=== PATIENT | male | born 1960 | race Caucasian/White ===

== ENCOUNTER 2016-12-24 05:28 | Inpatient (IN) | payer BC ==
[2016-12-17 12:22] LABS: BASOPHILS 0.6 %; BASOPHILS ABSOLUTE 0.05 10/3/uL (0.0-0.16); EOSINOPHILS 3.3 %; EOSINOPHILS ABSOLUTE 0.26 10/3/uL (0.0-0.53); HEMATOCRIT 39.8 % (40.0-51.0); HEMOGLOBIN 13.2 g/dL (13.6-17.8); IMMATURE GRANULOCYTES 0.8 %; IMMATURE GRANULOCYTES ABSOLUTE 0.06 10/3/uL (0.0-0.11); LYMPHOCYTES 35.5 %; LYMPHOCYTES ABSOLUTE 2.79 10/3/uL (0.67-4.30); MEAN CORPUS HGB CONC 33.2 g/dL (32.0-36.0); MEAN CORPUSCULAR HEMOGLOB 28.9 pg (26.0-34.0); MEAN CORPUSCULAR VOLUME 87.1 fL (80-100); MEAN PLATELET VOLUME 9.8 fL (9.2-13.0); MONOCYTES 7.8 %; MONOCYTES ABSOLUTE 0.61 10/3/uL (0.21-1.20); PLATELET COUNT 171 10/3/uL (150-400); RBC DISTRIBUTION WIDTH 13.1 % (12.0-16.0); RED CELL COUNT 4.57 10/6/uL (4.7-6.1)
[2016-12-17 12:26] LABS: INTERNATIONAL NORMAL RATI 1.2 UNITS (-)
[2016-12-17 12:31] LABS: MANUAL DIFF NO %; WHITE BLOOD CELLS 7.9 10/3/uL (4.5-10.5)
[2016-12-17 12:39] LABS: PROTIME (NOT ORD) 15.1 SEC (12.0-14.5)
[2016-12-17 12:42] LABS: % IRON SAT 23 % (20-50); BUN (BLOOD UREA NITROGEN) 11 MG/DL (6-23); CALCIUM, SERUM 8.9 MG/DL (8.5-10.4); CHLORIDE, SERUM 100 MMOL/L (96-112); CO2 (CARBON DIOXIDE) 32 MMOL/L (24-34); CREATININE 0.68 MG/DL (0.70-1.30); GFR AFRICAN AMERICAN 124 ML/MIN (>=60); GFR NON AFRICAN AMERICAN 107 ML/MIN (>=60); IRON BINDING CAPACITY 302 MCG/DL (250-450); IRON, SERUM 70 MCG/DL (35-150); SODIUM, SERUM 141 MMOL/L (135-148)
[2016-12-17 12:45] LABS: GLUCOSE, SERUM 123 MG/DL (60-99)
[2016-12-17 13:03] LABS: ASCORBIC ACID (UR NOT ORDER) NEG (NEG); BILIRUBIN, URINE NEGATIVE (NEG); KETONE, URINE NEGATIVE (NEG); LEUKOCYTE ESTERASE(NOT OR NEG (NEG); WBC (NOT ORDERED) (RFLEX) < 1 (0-5)
[2016-12-18 12:02] LABS: A/G RATIO 1.6 (0.7-1.9); ALKALINE PHOSPHATASE 58 U/L (45-117); GLOBULIN 2.5 G/DL (2.5-4.1); SGOT(AST) 14 U/L (5-40); TOTAL BILIRUBIN 0.5 MG/DL (0-1.2); TOTAL PROTEIN 6.6 G/DL (6.0-8.5)
[2016-12-18 12:04] LABS: ALBUMIN 4.1 G/DL (3.5-5.0)
[2016-12-18 12:21] LABS: SGPT(ALT) 19 U/L (5-65)
--- NOTE | ~2016-12-24 | CN ---
Consultation Report [address] [place]. [address] NAME: DENNISE KILPATRICK : 60 STATUS : ADM IN PAT#: [id number] AGE: 56 ADM/REG DATE : 12/24/16 MR#: [id number] REPORT SERV DATE: 12/27/16 DICTATED BY: JENI TURPIN DATE: 12/27/16 REPORT STATUS : Draft TRANSCRIBED BY: MODL DATE: 12/27/16 PULMONARY CONSULTATION DATE OF CONSULTATION: 12/27/2016 REASON FOR CONSULTATION: COPD. HISTORY OF PRESENT ILLNESS: Mr. Kilpatrick is a 56-year-old white male smoker with known COPD- on Anoro as an outpatient, obstructive sleep apnea-on BiPAP as an outpatient, and nocturnal hypoxia-on supplemental oxygen overnight as an outpatient. He was admitted for a CABG. Pulmonary has been consulted for assistance with treatment of COPD. The patient was started on his home medication of Anoro today. Prior to starting on this medication, here as an inpatient, he has been on Proventil via nebulization as well as Proventil via metered dose inhaler only. He states that he is followed by a [place] coffee supervisor, Dr. Jacky Oconnell as an outpatient and has been followed by the physician for several years. He was diagnosed with obstructive sleep apnea in 1993 and has used BiPAP since then. With regard to his COPD, he states that he was diagnosed more than one year ago and advised that his COPD is "mild." He was initially placed on Spiriva only, but was recently started on Anoro as described above. He uses Proventil one to two times daily for rescue purposes. He states that at baseline as an outpatient, he has minimal shortness of breath and rare wheezing. PAST MEDICAL HISTORY: 1. COPD as described above. 2. Obstructive sleep apnea-on BiPAP as described above. 3. Nocturnal hypoxia, on supplemental oxygen with sleep. 4. Coronary artery disease - status post CABG. 5. Diabetes mellitus. 6. Hypertension. 7. Hyperlipidemia. 8. Prior cholecystectomy. 9. Tonsillectomy. 10.Appendectomy. 11.Right and left rotator cuff repair. 12.Left knee surgery. 13.Left elbow surgery. 14.Paroxysmal atrial fibrillation. FAMILY HISTORY: His smoker father had COPD and emphysema. SOCIAL HISTORY: Mr. Das smoked up to one and a half packs of cigarettes per day and Consultation Report [facility] [address] [place]. [address] NAME: DENNISE KILPATRICK : 60 STATUS : ADM IN PAT#: [id number] AGE: 56 ADM/REG DATE : 12/24/16 MR#: [id number] REPORT SERV DATE: 12/27/16 DICTATED BY: JENI TURPIN DATE: 12/27/16 REPORT STATUS : Draft TRANSCRIBED BY: MODL DATE: 12/27/16 recently decreased his smoking to half a pack of cigarettes per day. He has smoked for 41 years. He denies ethanol intake, past/present drug use, or chewing tobacco. 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 He is and has no biological children. MEDICATIONS: Outpatient and inpatient medications were reviewed and are as documented in the record. As noted above, he was on Anoro once daily and rescue albuterol outpatient. ALLERGIES: HE DENIES MEDICATION ALLERGIES. REVIEW OF SYSTEMS: A 12-point system review was conducted and is remarkable for the symptoms as described in the history of present illness. It is notable that he feels his obstructive sleep apnea is well controlled with his current BiPAP settings. PHYSICAL EXAMINATION: VITAL SIGNS: Temperature 98.4 degrees, heart rate 96, blood pressure 141/82, respiratory rate 18, and oxygen saturation 97% on supplemental oxygen at a flow rate of 2 L/minute. GENERAL: Pleasant white male. Alert, oriented, no apparent distress. HEENT: Normocephalic. Atraumatic. There is no scleral icterus. The conjunctivae are clear. The oropharynx is clear. NECK: Supple. No lymphadenopathy was appreciated. LUNGS: Good effort. There are diminished breath sounds at both bases. There are a few faint expiratory wheezes in the lower lung gagnon. There are no crackles or rhonchi. HEART: Regular rate and rhythm. No ectopy was noted. ABDOMEN: Soft. Nontender. Nondistended. There are normal bowel sounds in all four quadrants. BILATERAL EXTREMITIES: There is minimal pedal edema. There is no cyanosis or clubbing. NEUROLOGICAL: A limited exam was conducted. It was found to be nonfocal. SKIN: No lesions or rashes were noted. LABORATORY RESULTS: Labs were reviewed and are as documented in the record. Notable labs include a white blood cell count of 14.6. IMAGING: Chest x-ray done 12/26/2016 was reviewed and did not reveal any infiltrates, atelectasis, or pleural effusions. ASSESSMENT AND PLAN: Mr. Kilpatrick is a 56-year-old white male smoker with known chronic obstructive pulmonary disease, obstructive sleep apnea, nocturnal hypoxia, who was admitted for coronary artery bypass graft. He currently has a few faint wheezes post CABG. As noted above, he has been restarted on his home medication Anoro. Consultation Report [place] [id number] [facility] [place]. [address] NAME: DENNISE KILPATRICK : 60 STATUS : ADM IN PAT#: [id number] AGE: 56 ADM/REG DATE : 12/24/16 MR#: [id number] REPORT SERV DATE: 12/27/16 DICTATED BY: JENI TURPIN DATE: 12/27/16 REPORT STATUS : Draft TRANSCRIBED BY: MAYCO DATE: 12/27/16 Recommend continuing Proventil for rescue purposes. Continue Anoro. The patient is wheezing as noted above, would add a nebulized steroid. Budesonide 0.5 mg twice daily via nebulization will be added to his regimen. Continue pulmonary toilet. Continue home BiPAP with supplemental oxygen here as an inpatient and as an outpatient after discharge. Wean daytime supplemental oxygen. As noted above, the patient is an active smoker. He was counseled for more than five minutes regarding the importance of smoking cessation and possible adverse affects of continued tobacco use. He is unsure if he has had a lung cancer screening and CT scan of the chest. He should have this as he does have a long history of smoking as documented. This can be done by his outpatient coffee supervisor. He should be discharged with his usual home COPD medications of Anoro and Proventil. He does have these medications as well as active prescriptions. Follow up with his usual outpatient coffee supervisor, Dr. Jacky Oconnell in [place] has been requested. Thank you very much for this consultation. Please call again if additional assistance is needed. JAZLYN/MAYCO Jeni Turpin M.D. / [id number] CC: Pancho Carrion SUSAN
--- NOTE | ~2016-12-24 | OP ---
Record Of Operation [facility] [address] [place]. [address] NAME: DENNISE KILPATRICK : 60 STATUS : ADM IN PAT#: [id number] AGE: 56 ADM/REG DATE : 12/24/16 MR#: [id number] REPORT SERV DATE: 12/27/16 DICTATED BY: FLASH ROSALES DATE: 12/25/16 REPORT STATUS : Draft TRANSCRIBED BY: MODL DATE: 12/25/16 DATE OF PROCEDURE: 12/24/2016 PREOPERATIVE DIAGNOSES: 1. Coronary artery disease with left main coronary stenosis. 2. Paroxysmal atrial fibrillation. 3. Chronic systolic congestive heart failure (ejection fraction 40%). 4. Chronic obstructive pulmonary disease. 5. Type 2 bqc-mmwieqa-junymwlzc diabetes mellitus. 6. Hypertension. 7. Hyperlipidemia. 8. Tobacco abuse. POSTOPERATIVE DIAGNOSES: 1. Coronary artery disease with left main coronary stenosis. 2. Paroxysmal atrial fibrillation. 3. Chronic systolic congestive heart failure (ejection fraction 40%). 4. Chronic obstructive pulmonary disease. 5. Type 2 qaw-fqqrriw-crdjezclx diabetes mellitus. 6. Hypertension. 7. Hyperlipidemia. 8. Tobacco abuse. PROCEDURES PERFORMED: 1. Coronary artery bypass grafting x4; left internal mammary artery placed to left anterior descending, reverse saphenous vein graft placed to the ramus intermedius, reverse saphenous vein graft placed to the first obtuse marginal, and reverse saphenous vein graft placed to the posterior descending artery. 2. Carr-Maze 4 procedure on cardiopulmonary bypass using radiofrequency ablation and cryoablation. 3. Endoscopic vein harvest of saphenous vein from the right leg. 4. Transesophageal echocardiography. CARE MANAGEMENT SPECIALIST: Nathaniel Duarte and Marlena Gillis. ANESTHESIA: General with Dr. Magallanes. ELEMENTARY SCHOOL BAND DIRECTOR: Hernan Shrestha M.D. PRIMARY CARE PHYSICIAN: Kathe He. INDICATIONS: This is a 56-year-old gentleman, who is an obese diabetic male with a long history of smoking, who has a history of coronary artery disease with previous stenting of the LAD. He was seen in [place], [place], in October because of acute onset shortness of breath and atrial fibrillation. He ruled out for myocardial infarction at that time and was referred for cardiac catheterization. This was performed and demonstrated significant Record Of Operation [facility] [address] [place]. [address] NAME: DENNISE KILPATRICK : 60 STATUS : ADM IN PAT#: [id number] AGE: 56 ADM/REG DATE : 12/24/16 MR#: [id number] REPORT SERV DATE: 12/27/16 DICTATED BY: FLASH ROSALES DATE: 12/25/16 REPORT STATUS : Draft TRANSCRIBED BY: MODMaru DATE: 12/25/16 left main coronary artery stenosis along with a significant posterior descending artery blockage. He had previously placed stent in the LAD which was patent. His ejection fraction was preserved at 60%. There was no significant mitral valve insufficiency seen on cardiac catheterization. We were asked to see the patient for possible coronary artery bypass grafting and consideration for Maze procedure secondary to paroxysmal atrial fibrillation documented at [facility] in [place]. He has a long history of COPD and obstructive sleep apnea and uses a CPAP device at night. Unfortunately, he continues to smoke about a half pack of cigarettes per day. He is an insulin-dependent diabetic male. His ejection fraction is 40% to 45% on cardiac catheterization. Echocardiogram showed depressed left ventricular function on 10/27/2016 and an EF of less than 40%. A stress test on 11/11/2016 demonstrated an EF of 42%. We saw the patient in our office and discussed possible coronary bypass grafting and possible Maze procedure. Preoperative STS predicted mortality of less than 1% and morbidity-mortality of less than 8% what we have shared with the family. After a lengthy discussion of the operation, its indications, and risks, they wished to proceed. FINDINGS AT OPERATION: 1. Cross-clamp time of 85 minutes. Total pump time of 134 minutes. 2. The LAD was a 1.75 mm, mildly diseased vessel. A 2.5 mm CLAY was anastomosed to it with good runoff. 3. The ramus intermedius was 2 mm and moderately diseased. A 4 mm RSVG was anastomosed to it with good runoff. 4. The first obtuse marginal was 2 mm and mildly diseased. A 4 mm RSVG was anastomosed to it with good runoff. 5. The posterior descending artery was 1.5 mm and mildly diseased. A 4 mm RSVG was anastomosed to it with good runoff. 6. The vein quality was okay. The vein had several areas that were dilated and with valves. We tried to exclude these as much as possible. All grafts did have good Doppler signal at the end of the case. 7. A Carr-Maze IV procedure was performed using AtriCure radiofrequency ablation and cryoablation probes. Full lesion set can be seen on the lesion set checklist in the operative section. Standard Carr-Maze IV lesion set was performed. 8. We did perform entry and exit block confirmation. 9. We did ligate and amputate the left atrial appendage. 10.ESDRAS demonstrated improved ventricular function after bypass with an EF that was estimated between 40% to 50%. Inferior wall hypocontractility was still notable. There was no significant valvular pathology and no left atrial appendage clot was seen on echo. 11.There were extensive emphysematous changes in both lungs that were seen directly during the procedure. PATHOLOGIC SPECIMENS: Include left atrial appendage. DESCRIPTION OF PROCEDURE: The patient was brought to the operating suite where general anesthesia was induced. The airway was secured with an endotracheal tube. Lines were secured by Anesthesia. A Sevilla catheter was placed. The patient's chest, abdomen, groin, and legs were prepped with Hibiclens and ChloraPrep and draped with Ioban sterile sheets. Record Of Operation [facility] [address] [facility] [place]. [address] NAME: DENNISE KILPATRICK : 60 STATUS : ADM IN PAT#: [id number] AGE: 56 ADM/REG DATE : 12/24/16 MR#: [id number] REPORT SERV DATE: 12/27/16 DICTATED BY: FLASH ROSALES DATE: 12/25/16 REPORT STATUS : Draft TRANSCRIBED BY: MODL DATE: 12/25/16 ESDRAS probe was placed by Anesthesia and examination carried out by Dr. Lipscomb in my attendance. No left atrial clot was seen. The saphenous vein was harvested from the right leg using endoscopic technique. Briefly, the vein was cut directly down upon through a 2 cm incision placed in the medial aspect of the left knee. Then, using VasoView trocars, the vessel was dissected from the surrounding subcutaneous tissue and fat. The side branches were identified, ligated, and divided with cautery. Once adequate length of vein had been dissected, a counterincision was made up in the groin and in the lower leg. The vein was ligated, divided, and brought through the knee incision. The vein quality was good. The leg was made hemostatic and closed in layers with absorbable suture and skin closed with subcuticular fashion. Next, a midline sternal incision was made, and the sternum was opened with a saw. The left hemithorax was elevated, and the endothoracic fascia was incised. Side branches of the REBECCA were clipped and divided. Once the REBECCA was completely dissected, the patient was anticoagulated with heparin and chest tube placed in the left pleural cavity. Extensive emphysematous changes in the upper lobes of both lungs were noted. The REBECCA was clipped and divided distally. There was good flow through the REBECCA, and its pedicle was infiltrated with papaverine. Next, the Richard retractor was placed in the pericardium over the innominate vein. The diaphragm was T'd and tacked to the side of the chest wall. Cannulation pursestring sutures were placed and cannulation was carried out in the ascending aorta first. Then, Maze procedure was begun. The right atrial appendage lesion was performed and dual- stage venous cannula was placed. When all was in readiness, the patient was placed on cardiopulmonary bypass. We continued with the right-sided lesion set for the Maze procedure performing all lesions in a Carr-Maze IV. Cryoablation was performed for the tricuspid annular lesion, and a coronary sinus lesion was performed using the cryoablation probe. Eventually, a retrograde cardioplegia cannula was placed in the coronary sinus. We continued with the Maze procedure on the left side. We first marked out the distal bypass targets as described in the findings. Then, circumferential dissection around the confluence of pulmonary veins was carried out. Entry and later exit block testing of the pulmonary veins was performed as seen in the Carr Maze IV lesion set checklist. Next, pulmonary vein isolation was performed along with a lesion at the base left atrial appendage and a connecting lesion between the left PVI and the base of the left atrial appendage. Then, the aorta was cross-clamped. Initial dose of cold blood cardioplegia solution was given in a combination of antegrade and retrograde fashion, then a retrograde manner following proximal anastomoses. Following the first dose of cardioplegia, we continued with the Maze procedure on the left side. A small left atriotomy was made, and superior and inferior dome lesions were performed. Final lesion going down to the mitral annulus in the region of P2 and P3 were performed using a combination of RFA and the cryoablation probe. The left atrium was then closed in a two-layer fashion with running pledgeted suture of 4-0 Prolene. The heart was then retracted towards the surgeon. The left atrial appendage was grasped. The left atrial appendage was ligated and amputated at its base using Record Of Operation [facility] [address] [place]. [address] NAME: DENNISE KILPATRICK : 60 STATUS : ADM IN PAT#: [id number] AGE: 56 ADM/REG DATE : 12/24/16 MR#: [id number] REPORT SERV DATE: 12/27/16 DICTATED BY: FLASH ROSALES DATE: 12/25/16 REPORT STATUS : Draft TRANSCRIBED BY: MODL DATE: 12/25/16 thoracoscopic stapler and a 60 mm purple staple load. Heart support was then placed. We then turned our attention towards the bypass graft. The heart was positioned for the PDA graft. Arteriotomy was made. The vein graft was trimmed and anastomosed to it with 7-0 Prolene. The vein graft was measured to the ascending aorta where it was divided and anastomosed to a 4.5 mm punch aortotomy with 6-0 Prolene. Another dose of cardioplegia was given, and we had positioned the heart for the first obtuse marginal graft. Another arteriotomy was made. The vein graft was trimmed and anastomosed to it with 7-0 Prolene. This vein graft was measured back to the left side of the ascending aorta where it was divided. We then positioned the heart for the ramus intermedius graft. Arteriotomy was made, and the vein graft was trimmed and anastomosed to it with 7-0 Prolene. This vein graft was then measured back to the left side of the ascending aorta where it was divided. Next, the proximal ends of these two vein grafts were anastomosed to 5 mm punch aortotomies with 6-0 Prolene. Another dose of cardioplegia was given, and the heart was positioned for the LAD graft. Arteriotomy was made in the mid to distal LAD where the vessel became epicardial. The REBECCA was brought out of the left chest through a notch in the pericardium over the pulmonary artery. The REBECCA was opened and anastomosed to the LAD with a running suture of 8-0 Prolene. The endothoracic fascia was tacked to the epicardium. The patient was placed in Trendelenburg, and final dose of warm blood cardioplegia was given in a retrograde fashion. Ventricular and atrial pacing wires were placed. Following the last dose of cardioplegia and deairing of the aorta, the aortic cross-clamp was removed. The distal and proximal anastomoses and suture lines were all inspected and made hemostatic. Doppler demonstrated good flow through the grafts. The heart was a little sluggish and was rest on the cardiopulmonary bypass pump. Low-dose inotropic agents were started. Ventilation was begun. Heart was paced in AV sequential fashion and this was later switched to atrial pacing only. When the heart demonstrated good contractility, it was allowed to fill and eject. There was a mild amount of air in the LV apex, and this was aspirated at the apex using needle and syringe. When air was greatly diminished, the heart was allowed to fill and eject. When de-airing was completed, the ascending aortic vent was removed, and these pursestring sutures tied and reinforced. The patient was weaned from cardiopulmonary bypass with inotropic support. The venous cannula was removed and these pursestring sutures tied. ESDRAS examination demonstrated good ventricular function with no significant valvular pathology. Protamine was administered by Anesthesia following a period of hemodynamic stability. The aortic cannula was removed, and these pursestring sutures were tied and reinforced. The patient continued to do well and chest irrigated copiously with saline. Meticulous hemostasis was obtained. Hemasorb was placed along the cut edge of the sternum. Once hemostasis was assured, the pericardium was draped over the anterior surface of the heart and tacked into position. Doppler demonstrated good flow through the grafts following protamine administration. Then, chest tubes were placed and the sternum reapproximated with eight sternal wires. The clavipectoral fascia and linea alba closed with 0 PDS. Subcutaneous tissue was closed and skin closed in a subcuticular fashion. Record Of Operation [facility] [address] [facility] [place]. [address] NAME: DENNISE KILPATRICK : 60 STATUS : ADM IN [facility]#: [id number] AGE: 56 ADM/REG DATE : 12/24/16 MR#: [id number] REPORT SERV DATE: 12/27/16 DICTATED BY: FLASH ROSALES DATE: 12/25/16 REPORT STATUS : Draft TRANSCRIBED BY: MODL DATE: 12/25/16 The patient tolerated the procedure well. There were no complications. Sponge and needle counts were correct. DISPOSITION: The patient was left intubated, sedated, and transported to the intensive care unit in a stable condition. JESUS/MAYCO Flash Rosales M.D. / [id number] CC: Pancho Carrion MD
--- NOTE | ~2016-12-24 | DS ---
Discharge Summary [facility] [address] [place]. [address] NAME: DENNISE KILPATRICK : 60 STATUS : DIS IN PAT#: [id number] AGE: 57 ADM/REG DATE : 12/24/16 MR#: [id number] REPORT SERV DATE: 02/25/17 DICTATED BY: FLASH ROSALES DATE: 02/24/17 REPORT STATUS : Draft TRANSCRIBED BY: MODMaru DATE: 02/24/17 Data Collection from hospitalization DISCHARGE DIAGNOSES: 1. Coronary artery disease. 2. Paroxysmal atrial fibrillation. 3. Oral anticoagulation. 4. Diabetes mellitus. 5. Hypertension. 6. Chronic obstructive pulmonary disease. 7. Obstructive sleep apnea. 8. Tobacco use. 9. Asthma. CONSULTATIONS: 1. Mag Martinez M.D. 2. Jeni Cormier M.D. 3. Sharan Nagy MD. PROCEDURES PERFORMED: Coronary artery bypass grafting x4 with left internal mammary artery to the left anterior descending artery, reverse saphenous vein graft placed to the ramus intermedius, reverse saphenous vein graft placed to the first obtuse marginal, and reverse saphenous vein graft placed to the posterior descending artery; Carr-Maze 4 procedure on cardiopulmonary bypass using radiofrequency ablation and cryoablation; endoscopic vein harvest of the saphenous vein from the right leg; and transesophageal echocardiography on 12/24/2016. PATHOLOGY: Left atrial appendage excision - cardiac tissue without histopathologic abnormality. MEDICATIONS: Aspirin 81 mg at bedtime, Lipitor 10 mg at bedtime, Lasix daily as instructed, Prinivil 5 mg daily, Fortamet 1000 mg twice a day, Lopressor 25 mg twice a day, multivitamins as instructed, amiodarone 200 mg twice a day, fish oil 500 mg daily, Percocet 5/325 one to two tablets every six hours as needed, Protonix 40 mg at bedtime, K-Dur 20 mEq daily, Januvia 100 mg at bedtime, Ultram 100 mg daily, and Coumadin 5 mg at bedtime. He was instructed not to continue Aleve, Coreg, Eliquis, diltiazem, or losartan. CONDITION AT DISCHARGE: Stable. DISPOSITION: The patient was discharged home on an 1800-calorie cardiac/diabetic diet with activities as instructed. He would follow up with Dr. Jacky Oconnell two to three weeks following discharge and with Dr. Hernan Shrestha on 01/19/2017. He would follow up with Abel Mahan on 01/27/2017 and at the [facility] on 12/30/2016. HOSPITAL COURSE: This is a 56-year-old man who is an obese, diabetic male with a long history of smoking, who has a history of coronary artery disease with previous stenting of the LAD. He had been seen in [place] in October because of the acute onset of shortness of breath and atrial fibrillation. He ruled out for myocardial infarction at that time and Discharge Summary [address] [address] NAME: DENNISE KILPATRICK : 60 STATUS : DIS IN PAT#: [id number] AGE: 57 ADM/REG DATE : 12/24/16 MR#: [id number] REPORT SERV DATE: 02/25/17 DICTATED BY: FLASH ROSALES DATE: 02/24/17 REPORT STATUS : Draft TRANSCRIBED BY: MAYCO DATE: 02/24/17 was referred for a cardiac catheterization. This was performed and demonstrated significant left main coronary artery stenosis along with significant posterior descending artery blockage. He had a previously placed stent in the LAD, which was patent. His ejection fraction was preserved at 60%. There was no significant mitral valve insufficiency seen on cardiac catheterization. It was felt that the patient would need to undergo coronary artery bypass grafting. Unfortunately, he continues to smoke about a half pack of cigarettes per day. He is an insulin-dependent diabetic male. He was admitted to the hospital at this time for further evaluation and treatment. Upon admission, he was taken to the operating room where he underwent the above-mentioned procedure. He tolerated this well, and there were no complications. Postoperatively, he was seen by Dr. Sharan Nagy. He was seen in the Cardiovascular ICU. Chest x-ray revealed mild bibasilar atelectasis, left greater than right. Routine postop care was provided. Low dose RANDY inhibitor was going to be added within the next one to two days. Eliquis would be resumed once this was okay with Surgery. Insulin drip continued. Blood pressure was stable. The following day, he was up sitting in a chair. Insulin drip continued. He had decreased breath sounds in the bases. His sternum was clean, dry, and intact. Eliquis was on hold for now. He was seen by Dr. Mga Martinez regarding diabetes management. He was diagnosed with diabetes approximately six years ago. He was currently on an insulin drip. He states that his hemoglobin A1c usually ranges in the low 7. He says that he is not on any special diet at home and eats and drinks sugary foods. The patient was informed as well as his family that he would be on a diabetic diet and avoid sugars and decrease carb. The patient said he understood this. The patient takes Januvia and metformin for diabetes, which was currently on hold. Current hemoglobin A1c was 7.2. He was to remain on a diabetic diet and would undergo diabetes education. He was to continue on his home BiPAP for obstructive sleep apnea. Bronchodilators were continued. Amiodarone was decreased. IV Pepcid was stopped. On 12/26/2016, his lungs were clear. His abdomen was soft and nontender. Warfarin was started. On 12/27/2016, he was seen by Dr. Jeni Cormier regarding COPD. The patient had been started on his home medication of Anoro. Prior to starting on this medication here as an inpatient, he had been on Proventil via nebulization as well as Proventil via metered-dose inhaler only. He is followed by a [place] home economist, Dr. Jacky Oconnell, as an outpatient and had been followed by him for several years. He was diagnosed with obstructive sleep apnea in 1993 and has used the BiPAP since then. He said he was diagnosed with COPD more than a year ago and was advised that his COPD was mild. He was initially placed on Spiriva only, but was recently started on Anoro. He uses Proventil one to two times daily for rescue purposes. At his baseline, he says he has minimal shortness of breath and rare wheezing. Blood cell count was 14.6. Chest x-ray did not reveal any infiltrates, atelectasis, or pleural effusions. He had a few faint wheezes. Proventil was going to be continued for rescue purposes. He was restarted on Anoro. Nebulized steroid was going to be added with budesonide. He was encouraged to continue pulmonary toilet. Discharge planning was performed. He was not eating very well. He had no chest pain or shortness of breath. He still had some increased chest tube drainage. On 12/28/2016, he had no new complaints. He was able to ambulate without difficulty. He was alert and cooperative. Beta-arley was increased. Discharge instructions were given. Due to his improved and stable condition, he was discharged home with the above-stated instructions. Discharge Summary [facility] [address] [place]. [address] NAME: DENNISE KILPATRICK : 60 STATUS : DIS IN PAT#: [id number] AGE: 57 ADM/REG DATE : 12/24/16 MR#: [id number] REPORT SERV DATE: 02/25/17 DICTATED BY: FLASH ROSALES DATE: 02/24/17 REPORT STATUS : Draft TRANSCRIBED BY: MAYOC DATE: 02/24/17 Information collected by: Juju Cardoso I submit the above information as my discharge summary. TG/MAYCO Flash Rosales M.D. / [id number] CC: Pancho Carrion SUSAN Vimal Ramjee, MD
--- NOTE | ~2016-12-24 | CN ---
Consultation Report [facility] [address] [place]. [address] NAME: DENNISE KILPATRICK : 60 STATUS : ADM IN PAT#: [id number] AGE: 56 ADM/REG DATE : 12/24/16 MR#: [id number] REPORT SERV DATE: 12/25/16 DICTATED BY: HOLLY CANADA DATE: 12/25/16 REPORT STATUS : Draft TRANSCRIBED BY: MAYCO DATE: 12/25/16 CONSULTATION DATE OF CONSULTATION: REASON FOR CONSULTATION: Diabetes management. HISTORY OF PRESENT ILLNESS: This is a 56-year-old male, with a past medical history of type 2 diabetes, diagnosed approximately six years ago, and history of hypertension. Postop day #1 for a quadruple CABG, and currently on Dr. Rosales's service with Cardiothoracic Surgery. The patient is currently on and a postop the insulin drip. The patient states that his hemoglobin A1c usually ranges in the low 7s, and states that he is not on any special diet at home, therefore, he is eating and drinking sugary foods. The patient was informed as well family that the patient is to be on a diabetic diet and to avoid sugars in decrease carbs. The patient states that he understands. He is currently sitting up in a chair with a family member at bedside. The patient takes metformin and Januvia for diabetes management at home which is currently on hold. PAST MEDICAL HISTORY: Type 2 diabetes, hypertension, hyperlipidemia, paroxysmal atrial fibrillation, coronary artery disease, COPD, and obstructive sleep apnea with home BiPAP. PAST SURGICAL HISTORY: Right rotator cuff and left rotator cuff repair, left knee and left elbow repair, cholecystectomy, tonsillectomy, appendectomy, and multiple caths. FAMILY HISTORY: Type 2 diabetes. SOCIAL HISTORY: Positive tobacco abuse. No alcohol or illicit drugs. ALLERGIES: NO KNOWN ALLERGIES. HOME MEDICATIONS: Reviewed. PHYSICAL EXAMINATION: VITAL SIGNS: Temperature of 98.6, blood pressure 120/70, with a pulse of 87, respiration of 18, and saturating 98% on 2 L. GENERAL: The patient is alert and oriented x3, currently in no distress. HEENT: Pupils are equal, round, and reactive to light. Extraocular muscles are intact. Moist mucous membranes. Anicteric sclera. CARDIOVASCULAR: S1 and S2. No appreciated rubs or gallops. RESPIRATORY: With a positive mild bibasilar rales. No wheezing. No signs of tachypnea. ABDOMEN: Positive bowel sounds. Soft and nontender. No rebound. No fluid wave. EXTREMITIES: Warm. Suspect trace of edema. NEURO: Cranial nerves II through XII grossly intact. Moves all four extremities. No neuro focal deficits. Consultation Report [facility] [id number] [place]. [address] NAME: DENNISE KILPATRICK : 60 STATUS : ADM IN [facility]#: [id number] AGE: 56 ADM/REG DATE : 12/24/16 MR#: [id number] REPORT SERV DATE: 12/25/16 DICTATED BY: HOLLY CANADA DATE: 12/25/16 REPORT STATUS : Draft TRANSCRIBED BY: MAYCO DATE: 12/25/16 LABORATORY DATA: Hemoglobin of 10.7, hematocrit of 32.5. Sodium 143, potassium 4.6, chloride 108, bicarb of 25, BUN of 21, creatinine is 0.57, with a glucose of 99. ASSESSMENT AND PLAN: 1. Consultation regarding type 2 diabetes management. Current hemoglobin A1c of 7.2. The patient should remain on ADA diet, with diabetic education. He has required approximately 100 units of insulin the past 24 hours. We will transition off insulin drip. Start Levemir and sliding scale insulin and closely monitor. 2. Coronary artery disease/CABG, management deferred to primary team. 3. History of obstructive sleep apnea. The patient to continue with home BiPAP. 4. History of chronic obstructive pulmonary disease, continue with bronchodilators. [facility] Holly Canada M.D. / [id number] CC: Walter Rosales M.D.
[~2016-12-24 05:28] MED LIST: ALEVE220 MG PO; ASAB PO; CARDCD120 PO; COREG25 PO; COREG3 PO; COZAAR100 MG PO; ELIQUIS 5 MG TAB5 MG PO; FISH-EPA1000 MG PO; FORTAMET1000 MG PO; IVVIBRA; JANUVIA100 MG PO; L20 PO; L40 PO; LIPITOR10 PO; MULTIPLE VIT; MULTIPLE VIT PO; NORV5 PO; PCET PO; PROTONIX PO; SINGULAIR1 PO; SPIRIVA INH; ULTRAM50 PO; VITAMIN B-122500 MCG PO; VITAMIN B-122500 MCG SL; VITC500 PO
[2016-12-24 13:34] LABS: BE (BASE EXCESS) 0.1 MEQ/L (0 +/- 2.5); CARBOXYHEMOGLOBIN 0.3 % (0-3); HCO3 (ACTUAL BICARBONATE) 26.2 MEQ/L (23-27); HEMOBLOGIN CONTENT 12.5 G/DL (14-18); INSTRUMENT SERIAL # 11843; METHEMOGLOBIN 0.6 % (0-3); MODE SIMV; O2 CONTENT 17.7 VOL% (18-24); OPERATOR ID 13715; PCO2 (CO2 TENSION) 49 MMHG (35-45); PO2 (O2 TENSION) 219 MMHG (79-93); SAMPLE Arterial; TIDAL VOLUME 800 ML; pH 7.35 (7.37-7.43)
[2016-12-24 14:48] LABS: BASOPHILS 0.1 %; BASOPHILS ABSOLUTE 0.02 10/3/uL (0.0-0.16); EOSINOPHILS 0.5 %; EOSINOPHILS ABSOLUTE 0.09 10/3/uL (0.0-0.53); HEMOGLOBIN 11.9 g/dL (13.6-17.8); IMMATURE GRANULOCYTES 0.8 %; IMMATURE GRANULOCYTES ABSOLUTE 0.15 10/3/uL (0.0-0.11); LYMPHOCYTES 9.3 %; LYMPHOCYTES ABSOLUTE 1.67 10/3/uL (0.67-4.30); MEAN CORPUS HGB CONC 33.2 g/dL (32.0-36.0); MEAN CORPUSCULAR VOLUME 87.1 fL (80-100); MEAN PLATELET VOLUME 10.3 fL (9.2-13.0); MONOCYTES 0.9 %; MONOCYTES ABSOLUTE 0.17 10/3/uL (0.21-1.20); NEUTROPHILS 88.4 %; NEUTROPHILS ABSOLUTE 15.85 10/3/uL (2.02-8.40); PLATELET COUNT 137 10/3/uL (150-400); RBC DISTRIBUTION WIDTH 13.2 % (12.0-16.0); RED CELL COUNT 4.11 10/6/uL (4.7-6.1)
[2016-12-24 14:51] LABS: HEMATOCRIT 35.8 % (40.0-51.0); MANUAL DIFF NO %
[2016-12-24 14:59] LABS: BUN (BLOOD UREA NITROGEN) 14 MG/DL (6-23); CALCIUM, SERUM 9.4 MG/DL (8.5-10.4); CHLORIDE, SERUM 109 MMOL/L (96-112); CO2 (CARBON DIOXIDE) 29 MMOL/L (24-34); CREATININE 0.85 MG/DL (0.70-1.30); GFR AFRICAN AMERICAN 113 ML/MIN (>=60); GFR NON AFRICAN AMERICAN 97 ML/MIN (>=60); GLUCOSE, SERUM 119 MG/DL (60-99); INTERNATIONAL NORMAL RATI 1.3 UNITS (-); PARTIAL THROMBO TIME 31.1 SEC (22.5-37.2); PROTIME (NOT ORD) 16.2 SEC (12.0-14.5); SODIUM, SERUM 146 MMOL/L (135-148)
[2016-12-24 15:08] LABS: POTASSIUM, SERUM 3.8 MMOL/L (3.5-5.3)
[2016-12-24 17:52] LABS: BE (BASE EXCESS) 0.2 MEQ/L (0 +/- 2.5); DEVICE NC; HCO3 (ACTUAL BICARBONATE) 25.7 MEQ/L (23-27); HEMOBLOGIN CONTENT 12.2 G/DL (14-18); INSTRUMENT SERIAL # 11843; METHEMOGLOBIN 0.6 % (0-3); O2 CONTENT 15.9 VOL% (18-24); OPERATOR ID 13715; PCO2 (CO2 TENSION) 45 MMHG (35-45); PO2 (O2 TENSION) 73 MMHG (79-93); SAMPLE Arterial; pH 7.38 (7.37-7.43)
[2016-12-24 20:28] LABS: HEMATOCRIT 33.6 % (40.0-51.0); HEMOGLOBIN 11.2 g/dL (13.6-17.8)
[2016-12-24 20:39] LABS: GLUCOSE, SERUM 168 MG/DL (60-99)
[2016-12-24 21:59] LABS: CALCIUM, SERUM 9.3 MG/DL (8.5-10.4); CHLORIDE, SERUM 111 MMOL/L (96-112); CREATININE 0.68 MG/DL (0.70-1.30); GFR AFRICAN AMERICAN 124 ML/MIN (>=60); GFR NON AFRICAN AMERICAN 107 ML/MIN (>=60); SODIUM, SERUM 145 MMOL/L (135-148)
[2016-12-24 22:00] LABS: BUN (BLOOD UREA NITROGEN) 20 MG/DL (6-23); CO2 (CARBON DIOXIDE) 23 MMOL/L (24-34)
[2016-12-25 00:57] LABS: POTASSIUM, SERUM 4.3 MMOL/L (3.5-5.3)
[2016-12-25 04:47] LABS: BASOPHILS 0.1 %; BASOPHILS ABSOLUTE 0.01 10/3/uL (0.0-0.16); EOSINOPHILS 0 %; HEMATOCRIT 31.9 % (40.0-51.0); HEMOGLOBIN 10.7 g/dL (13.6-17.8); IMMATURE GRANULOCYTES 0.4 %; IMMATURE GRANULOCYTES ABSOLUTE 0.06 10/3/uL (0.0-0.11); LYMPHOCYTES 8.1 %; LYMPHOCYTES ABSOLUTE 1.25 10/3/uL (0.67-4.30); MEAN CORPUS HGB CONC 33.5 g/dL (32.0-36.0); MEAN CORPUSCULAR HEMOGLOB 29.1 pg (26.0-34.0); MEAN CORPUSCULAR VOLUME 86.7 fL (80-100); MEAN PLATELET VOLUME 10.2 fL (9.2-13.0); MONOCYTES 3.5 %; MONOCYTES ABSOLUTE 0.55 10/3/uL (0.21-1.20); NEUTROPHILS 87.9 %; NEUTROPHILS ABSOLUTE 13.63 10/3/uL (2.02-8.40); PLATELET COUNT 120 10/3/uL (150-400); RBC DISTRIBUTION WIDTH 13.5 % (12.0-16.0); RED CELL COUNT 3.68 10/6/uL (4.7-6.1); WHITE BLOOD CELLS 15.5 10/3/uL (4.5-10.5)
[2016-12-25 04:48] LABS: MANUAL DIFF NO %
[2016-12-25 04:51] LABS: INTERNATIONAL NORMAL RATI 1.2 UNITS (-); PARTIAL THROMBO TIME 28.1 SEC (22.5-37.2); PROTIME (NOT ORD) 14.9 SEC (12.0-14.5)
[2016-12-25 04:54] LABS: BUN (BLOOD UREA NITROGEN) 21 MG/DL (6-23); CALCIUM, SERUM 8.8 MG/DL (8.5-10.4); CHLORIDE, SERUM 108 MMOL/L (96-112); CO2 (CARBON DIOXIDE) 25 MMOL/L (24-34); CREATININE 0.57 MG/DL (0.70-1.30); GFR AFRICAN AMERICAN 133 ML/MIN (>=60); GFR NON AFRICAN AMERICAN 115 ML/MIN (>=60); GLUCOSE, SERUM 99 MG/DL (60-99); POTASSIUM, SERUM 4.6 MMOL/L (3.5-5.3); SODIUM, SERUM 143 MMOL/L (135-148)
[2016-12-25 16:16] LABS: HEMATOCRIT 32.5 % (40.0-51.0); HEMOGLOBIN 10.7 g/dL (13.6-17.8)
[2016-12-25 16:23] LABS: POTASSIUM, SERUM 4.8 MMOL/L (3.5-5.3)
[2016-12-26 07:59] LABS: BASOPHILS 0.1 %; BASOPHILS ABSOLUTE 0.01 10/3/uL (0.0-0.16); EOSINOPHILS 0.1 %; EOSINOPHILS ABSOLUTE 0.01 10/3/uL (0.0-0.53); HEMATOCRIT 30.3 % (40.0-51.0); IMMATURE GRANULOCYTES 0.3 %; IMMATURE GRANULOCYTES ABSOLUTE 0.05 10/3/uL (0.0-0.11); LYMPHOCYTES 14.4 %; MANUAL DIFF NO %; MEAN CORPUSCULAR HEMOGLOB 28.9 pg (26.0-34.0); MEAN CORPUSCULAR VOLUME 87.6 fL (80-100); MEAN PLATELET VOLUME 10.3 fL (9.2-13.0); MONOCYTES 9.2 %; MONOCYTES ABSOLUTE 1.34 10/3/uL (0.21-1.20); NEUTROPHILS 75.9 %; NEUTROPHILS ABSOLUTE 11.11 10/3/uL (2.02-8.40); PLATELET COUNT 128 10/3/uL (150-400); RBC DISTRIBUTION WIDTH 14.1 % (12.0-16.0); RED CELL COUNT 3.46 10/6/uL (4.7-6.1); WHITE BLOOD CELLS 14.6 10/3/uL (4.5-10.5)
[2016-12-26 08:12] LABS: CALCIUM, SERUM 8.4 MG/DL (8.5-10.4); CHLORIDE, SERUM 102 MMOL/L (96-112); CO2 (CARBON DIOXIDE) 27 MMOL/L (24-34); GFR AFRICAN AMERICAN 130 ML/MIN (>=60); GFR NON AFRICAN AMERICAN 112 ML/MIN (>=60); GLUCOSE, SERUM 100 MG/DL (60-99); POTASSIUM, SERUM 4.5 MMOL/L (3.5-5.3); SODIUM, SERUM 139 MMOL/L (135-148)
[2016-12-26 08:14] LABS: BUN (BLOOD UREA NITROGEN) 25 MG/DL (6-23)
[2016-12-27 16:39] LABS: ASCORBIC ACID (UR NOT ORDER) 40 (NEG); BILIRUBIN, URINE NEGATIVE (NEG); KETONE, URINE TRACE MG/DL (NEG); LEUKOCYTE ESTERASE(NOT OR NEG (NEG); WBC (NOT ORDERED) (RFLEX) 1 (0-5)
[2016-12-28 04:21] LABS: BASOPHILS 0.4 %; BASOPHILS ABSOLUTE 0.03 10/3/uL (0.0-0.16); EOSINOPHILS 3.9 %; EOSINOPHILS ABSOLUTE 0.33 10/3/uL (0.0-0.53); HEMATOCRIT 29.2 % (40.0-51.0); HEMOGLOBIN 9.7 g/dL (13.6-17.8); IMMATURE GRANULOCYTES 0.7 %; IMMATURE GRANULOCYTES ABSOLUTE 0.06 10/3/uL (0.0-0.11); LYMPHOCYTES 21.5 %; LYMPHOCYTES ABSOLUTE 1.82 10/3/uL (0.67-4.30); MEAN CORPUS HGB CONC 33.2 g/dL (32.0-36.0); MEAN CORPUSCULAR HEMOGLOB 28.8 pg (26.0-34.0); MEAN CORPUSCULAR VOLUME 86.6 fL (80-100); MEAN PLATELET VOLUME 9.9 fL (9.2-13.0); MONOCYTES 13.1 %; MONOCYTES ABSOLUTE 1.11 10/3/uL (0.21-1.20); NEUTROPHILS 60.4 %; NEUTROPHILS ABSOLUTE 5.11 10/3/uL (2.02-8.40); PLATELET COUNT 138 10/3/uL (150-400); RBC DISTRIBUTION WIDTH 13.4 % (12.0-16.0); RED CELL COUNT 3.37 10/6/uL (4.7-6.1)
[2016-12-28 04:22] LABS: MANUAL DIFF NO %; WHITE BLOOD CELLS 8.5 10/3/uL (4.5-10.5)
[2016-12-28 04:26] LABS: INTERNATIONAL NORMAL RATI 1.3 UNITS (-); PROTIME (NOT ORD) 15.9 SEC (12.0-14.5)
[2016-12-28 04:33] LABS: CALCIUM, SERUM 8.4 MG/DL (8.5-10.4); CHLORIDE, SERUM 98 MMOL/L (96-112); CREATININE 0.48 MG/DL (0.70-1.30); GFR AFRICAN AMERICAN 143 ML/MIN (>=60); GFR NON AFRICAN AMERICAN 123 ML/MIN (>=60); POTASSIUM, SERUM 3.9 MMOL/L (3.5-5.3); SODIUM, SERUM 139 MMOL/L (135-148)
[2016-12-28 04:34] LABS: BUN (BLOOD UREA NITROGEN) 13 MG/DL (6-23); CO2 (CARBON DIOXIDE) 34 MMOL/L (24-34); GLUCOSE, SERUM 122 MG/DL (60-99)
[2016-12-28] MEDS ORDERED: PRIN5 PO (13:21)
[2016-12-28] MEDS ORDERED: LOP25 PO (13:21)
[2016-12-28] MEDS ORDERED: KDUR20 PO (13:22)
[2016-12-28] MEDS ORDERED: C5 PO (13:22)
== END 2016-12-28 15:36 | disposition home or self-care (01) | DRG 229 ==
LOC: SDC/OF 05:28 → CVICU 11:20 → 5NO 12-25 16:44
PROVIDERS: Thoracic Surgery (Cardiothoracic Vascular Surgery)
PROC: 06BP3ZZ Excision of Right Saphenous Vein, Percutaneous Approach (ICD-10-PCS; 2016-12-24)
PROC: 5A1221Z Performance of Cardiac Output, Continuous (ICD-10-PCS; 2016-12-24)
PROC: B246ZZ4 Ultrasonography of Right and Left Heart, Transesophageal (ICD-10-PCS; 2016-12-24)
PROC: 02580ZZ Destruction of Conduction Mechanism, Open Approach (ICD-10-PCS; principal; 2016-12-24 07:30)
PROC: 02100Z9 Bypass Coronary Artery, One Artery from Left Internal Mammary, Open Approach (ICD-10-PCS; 2016-12-24 07:30)
PROC: 021209W Bypass Coronary Artery, Three Arteries from Aorta with Autologous Venous Tissue, Open Approach (ICD-10-PCS; 2016-12-24 07:30)
DX: I25.10 Atherosclerotic heart disease of native coronary artery without angina pectoris (principal); I11.0 Hypertensive heart disease with heart failure; I50.22 Chronic systolic (congestive) heart failure; J44.9 Chronic obstructive pulmonary disease, unspecified; I48.0 Paroxysmal atrial fibrillation; E11.9 Type 2 diabetes mellitus without complications; E78.5 Hyperlipidemia, unspecified; I25.5 Ischemic cardiomyopathy; G47.33 Obstructive sleep apnea (adult) (pediatric); F17.210 Nicotine dependence, cigarettes, uncomplicated; Z95.5 Presence of coronary angioplasty implant and graft
CPT/HCPCS: 36415; 71010; 71020; 80048; 80053; 81001; 82330; 82803; 82805; 82947; 82962; 83036; 83540; 83550; 83735; 84132; 84295; 85014; 85018; 85025; 85049; 85347; 85610; 85730; 86850; 86900; 86901; 86920; 87641; 88304; 93005; 93312; 93320; 93325; 94002; 94640; 94660; 94770; A9270-GY; C1713; C1751; C1769; C1894; C2618; J0690; J1644; J2150; J2250; J2370; J2405; J2440; J2720; J2765; J2795; J2930; J3010; J3370; J3475; J3480; P9045; P9047